=== PATIENT | male | born 1995 | race Caucasian/White ===

== ENCOUNTER 2021-04-22 17:13 | Emergency (ER) | payer OTHER ==
[2021-04-22 17:56] VITALS: BP 138/74
--- NOTE | 2021-04-22 18:40 | ED Physician Documentation ---
PD HPI BACK PAIN - Stated complaint Stated Complaint: BACK PX - Chief complaint Chief Complaint: Back Pain - History obtained from History obtained from: Patient - Additional information Additional information: He has had upper back pain radiating to the right scapula for a day. No specific injury but he does work doing landscaping and construction. Hurts to take a deep breath but is not short of breath per se. No fevers. Review of Systems Constitutional: reports: Reviewed and negative Eyes: reports: Reviewed and negative Ears: reports: Reviewed and negative Nose: reports: Reviewed and negative Throat: reports: Reviewed and negative Cardiac: reports: Reviewed and negative PD PAST MEDICAL HISTORY - Present Medications Home Medications: Ambulatory Orders Medication Instructions Recorded Confirmed Cyclobenzaprine [Flexeril] 10 mg PO TID PRN #20 tablet 04/22/21 Ibuprofen [Motrin] 800 mg PO Q8H PRN #30 tablet 04/22/21 - Allergies Allergies/Adverse Reactions: Allergies Allergy/AdvReac Type Severity Reaction Status Date / Time No Known Drug Allergies Allergy Verified 04/22/21 17:56 PD ED PE NORMAL - Vitals Vital signs reviewed: Yes - General General: Alert and oriented X 3, No acute distress - Neck Neck: Supple, no meningeal sign, No bony TTP - Cardiac Cardiac: RRR, No murmur - Respiratory Respiratory: No respiratory distress, Clear bilaterally - Back Back: Other (Focally tender over the right parathoracic musculature, no midline spinal tenderness.) - Neuro Neuro: Alert and oriented X 3, Normal speech Results - Vitals Vitals: Vital Signs - 24 hr 04/22/21 17:53 Temperature 36.7 C Heart Rate 83 Respiratory 15 Rate Blood Pressure 138/74 H O2 Saturation 100 Oxygen O2 Source Room air PD MEDICAL DECISION MAKING - ED course Complexity details: considered differential (26yo with clearly muscular back pain) Departure - Departure Disposition: 01 Home, Self Care Clinical Impression: Back spasm Condition: Good Record reviewed to determine appropriate education?: Yes Instructions: ED Spasm Back No Trauma Prescriptions: Cyclobenzaprine [Flexeril] 10 mg PO TID PRN #20 tablet PRN Reason: Spasms Ibuprofen [Motrin] 800 mg PO Q8H PRN #30 tablet PRN Reason: PAIN &/OR FEVER Comments: Call your doctor to arrange a follow-up appointment, make the next available appointment. In the interim, return anytime if worse or if new symptoms develop. Discharge Date/Time: 04/22/21 18:58
== END 2021-04-22 18:58 | disposition home or self-care (01) ==
LOC: ED 17:13
DX: M62.830 Muscle spasm of back (principal)
CPT/HCPCS: 99282; 99283

== ENCOUNTER 2021-12-09 15:10 | Emergency (ER) | payer OTHER ==
--- NOTE | 2021-12-09 16:00 | XRAY Report ---
PROCEDURE: Knee 4 View RT INDICATIONS: Trauma TECHNIQUE: 3 views of the right knee(s) were acquired. COMPARISON: None. FINDINGS: Bones: No fractures or dislocations. No suspicious bony lesions. Soft tissues: No joint effusion. No suspicious soft tissue calcifications. IMPRESSION: No fracture. No osseous lesion. If there are persistent symptoms or continued clinical concern for pa thology, then repeat plain film radiographs (7-10 days) or advanced imaging (CT, MR, bone scan) shoul d be considered for further evaluation. Reviewed by: Leslie Vega MD, PhD on 12/09/2021 3:59 PM PDT Approved by: Leslie Vega MD, PhD on 12/09/2021 3:59 PM PDT Station ID: [id number]
--- NOTE | 2021-12-09 17:29 | ED Physician Documentation ---
History of Present Illness - Stated complaint Stated Complaint: SWOLLEN R KNEE,PX - Chief complaint Chief Complaint: Trauma Ext - History obtained from History obtained from: Patient - Additonal information Additional information: Pt comes to the ED with CC of R knee pain/swelling after a twisting injury while stepping out of the shower. No pop or snap during the incident. No other injuries. Pt is ambulatory, but states his medial knee hurts. Review of Systems Ten Systems: 10 systems reviewed and negative Constitutional: reports: Reviewed and negative Eyes: reports: Reviewed and negative Ears: reports: Reviewed and negative Nose: reports: Reviewed and negative Throat: reports: Reviewed and negative Cardiac: reports: Reviewed and negative Respiratory: reports: Reviewed and negative GI: reports: Reviewed and negative : reports: Reviewed and negative Skin: reports: Reviewed and negative Musculoskeletal: reports: Extremity pain, Joint pain Neurologic: reports: Reviewed and negative Psychiatric: reports: Reviewed and negative Endocrine: reports: Reviewed and negative Immunocompromised: reports: Reviewed and negative PD PAST MEDICAL HISTORY - Present Medications Home Medications: Ambulatory Orders Medication Instructions Recorded Confirmed Cyclobenzaprine [Flexeril] 10 mg PO TID PRN #20 tablet 04/22/21 Ibuprofen [Motrin] 800 mg PO Q8H PRN #30 tablet 04/22/21 - Allergies Allergies/Adverse Reactions: Allergies Allergy/AdvReac Type Severity Reaction Status Date / Time No Known Drug Allergies Allergy Verified 12/09/21 15:25 PD ED PE NORMAL - Vitals Vital signs reviewed: Yes - General General: Alert and oriented X 3, No acute distress, Well developed/nourished - HEENT HEENT: Atraumatic, PERRL, EOMI, Moist mucous membranes - Neck Neck: Supple, no meningeal sign - Cardiac Cardiac: Strong equal pulses - Respiratory Respiratory: No respiratory distress - Derm Derm: Normal color, Warm and dry, No rash - Extremities Extremities: No deformity, Other (Tenderness to palpation over L medial knee, over distal femur. Mild edema. No contusion. No AP or varus-valgus instability. Straight-leg raise intact. Limited ROM secondary to pain. No patellar tend/tracking abnormality.) - Neuro Neuro: Alert and oriented X 3 - Psych Psych: Normal mood, Normal affect Results - Vitals Vitals: Oxygen O2 Source Room air - Rads (name of study) R knee XR Radiology: Final report received, EMP read indepedently, See rad report (neg) PD MEDICAL DECISION MAKING - ED course Complexity details: reviewed results, re-evaluated patient, considered differential, d/w patient ED course: Pt's XR was negative. He was given a knee brace and crutches. We have discussed the usual indications for follow-up and return, as well as the expected course of recovery. Departure - Departure Disposition: 01 Home, Self Care Clinical Impression: Right knee sprain Qualifiers: Encounter type: initial encounter Involved ligament of knee: unspecified ligament Qualified Code(s): S83.91XA - Sprain of unspecified site of right knee, initial encounter Condition: Stable Instructions: ED Sprain Knee Discharge Date/Time: 12/09/21 18:05
[2021-12-09 18:15] VITALS: BP 135/80
== END 2021-12-09 18:05 | disposition home or self-care (01) ==
LOC: ED 15:10
DX: S83.91XA Sprain of unspecified site of right knee, initial encounter (principal); X50.1XXA Overexertion from prolonged static or awkward postures, initial encounter; Y93.E1 Activity, personal bathing and showering
CPT/HCPCS: 99282; 99283